=== PATIENT | female | born 1990 | race American Indian/Alaskan Native ===

== ENCOUNTER 2017-05-12 13:49 | Emergency (ER) | payer MEDICAID ==
[2017-05-12 14:49] VITALS: BP 177/83
--- NOTE | 2017-05-12 14:57 | EDM.PDOC ---
ED HPI GENERAL MEDICAL PROBLEM - General Chief Complaint: ENT Problem Stated Complaint: SORE THROAT Time Seen by Provider: 05/12/17 14:30 Source of Information: Reports: Patient History Limitations: Reports: No Limitations - History of Present Illness INITIAL COMMENTS - FREE TEXT/NARRATIVE: 27-year-old female with a left-sided sore throat and jaw pain for the past 4-6 days. Has worsened over the past 2 days. No fevers or chills no exposure to strep that she knows of. Pain is now radiating into the ear. Onset: Gradual Duration: Day(s): (6-7 days) Location: Reports: Face (Left-sided) Severity: Mild Improves with: Reports: Medication Throat Pain Score (Numeric/FACES): 6 - Related Data Allergies Allergy/AdvReac Type Severity Reaction Status Date / Time sulfamethoxazole Allergy Hives Verified 05/12/17 14:23 [From Bactrim] trimethoprim [From Bactrim] Allergy Hives Verified 05/12/17 14:23 Home Meds: Home Meds NK [No Known Home Meds] 05/12/17 [History] Past Medical History - Past Health History Medical/Surgical History: Denies Medical/Surgical History Social & Family History - Caffeine Use Caffeine Use: Reports: Soda - Recreational Drug Use Recreational Drug Use: No ED ROS ENT - Review of Systems Review Of Systems: See Below (Ibuprofen helped yesterday) Constitutional: Denies: Fever, Chills, Malaise HEENT: Reports: Ear Pain, Throat Pain Respiratory: Denies: Shortness of Breath (On the left side), Cough Cardiovascular: Denies: Chest Pain GI/Abdominal: Denies: Nausea, Vomiting Skin: Reports: No Symptoms Neurological: Denies: Headache ED EXAM, ENT - Physical Exam Exam: See Below Exam Limited By: No Limitations General Appearance: Alert, No Apparent Distress Ears: Normal TMs Mouth/Throat: Other (She has diffuse pharyngeal erythema, no asymmetry or significant swelling) Neck: Full Range of Motion. No: Lymphadenopathy (R), Lymphadenopathy (L) Respiratory/Chest: No Respiratory Distress, Lungs Clear Neurological: Alert Psychiatric: Normal Affect, Normal Mood Skin: Warm, Dry Course - Vital Signs Last Recorded V/S: Last Vital Signs Temp 98.9 F 05/12/17 14:23 Pulse 68 05/12/17 14:23 Resp 15 05/12/17 14:23 BP 177/83 H 05/12/17 14:23 Pulse Ox 99 05/12/17 14:23 - Orders/Labs/Meds Orders: Active Orders 24 hr Category Date Time Status CULTURE STREP A CONFIRMATION [RM] Routine Lab 05/12/17 14:44 Results STREP SCRN A RAPID W CULT CONF [RM] Routine Lab 05/12/17 14:44 Results - Re-Assessments/Exams Free Text/Narrative Re-Assessment/Exam: 05/12/17 14:57 A rapid strep was obtained. Departure - Departure Time of Disposition: 15:07 Disposition: Home, Self-Care 01 Condition: Good Clinical Impression: Pharyngitis Qualifiers: Pharyngitis/tonsillitis etiology: other specified organisms Qualified Code(s): J02.8 - Acute pharyngitis due to other specified organisms - Discharge Information Instructions: Sore Throat, [id number] Referrals: PCP,None [Primary Care Provider] - Forms: ED Department Discharge Care Plan Goals: Continue with ibuprofen 2-3 times daily, lots of water and take antibiotic as prescribed. Recheck with your dentist later this week if not improving satisfactorily. Return sooner if worsening or concerns. - My Orders Last 24 Hours: My Active Orders 05/12/17 14:44 CULTURE STREP A CONFIRMATION [RM] Routine STREP SCRN A RAPID W CULT CONF [RM] Routine - Assessment/Plan Last 24 Hours: My Active Orders 05/12/17 14:44 CULTURE STREP A CONFIRMATION [RM] Routine STREP SCRN A RAPID W CULT CONF [RM] Routine
== END 2017-05-12 15:08 | disposition home or self-care (01) ==
LOC: JP.ED 13:49
DX: J02.8 Acute pharyngitis due to other specified organisms (principal); Z88.2 Allergy status to sulfonamides; Z88.1 Allergy status to other antibiotic agents
CPT/HCPCS: 87081; 87430; 99283